=== PATIENT | male | born 1980 | race African-American/Black ===

== ENCOUNTER 2021-05-02 20:41 | Emergency (ER) | payer MEDICAID ==
[~2021-05-02] VITALS: Ht 182.9 cm; Wt 68.2 kg
[2021-05-02] MEDS ORDERED: ZYPREXA10 M1 PO (21:38)
[2021-05-02] MEDS ORDERED: ABILIFY 10MG TA10 MG PO (21:38)
[2021-05-02] MEDS ORDERED: ZOLOFT25 M1 PO (21:39)
[2021-05-02 22:31] LABS: BASO # 0.02 (0.02-0.10); EOS # 0.01 (0.04-0.40); EOS % 0.1 % (0.0-4.0); HEMATOCRIT 46.5 % (42.0-52.0); LYMPH# 0.83 (1.50-4.00); MEAN CELL VOLUME 86 fl (78-100); MEAN CORPUSCULAR HEMOGLOBIN 29 pg (27-31); MEAN CORPUSCULAR HGB CONC 34 g/dL (33-37); MEAN PLATELET VOLUME 10.3 fl (7.4-10.4); MONO # 0.76 (0.20-0.80); NEU # 11.42 (1.40-6.50); PLATELET COUNT 222 K/mm3 (130-400); RED BLOOD COUNT 5.44 M/mm3 (4.20-5.60); RED CELL DISTRIBUTION WIDTH 13.7 % (11.5-14.5); WHITE BLOOD COUNT 13.1 K/mm3 (4.8-10.8)
[2021-05-02 22:44] LABS: ALBUMIN 4.2 g/dL (3.5-5.0); POTASSIUM 3.6 mmol/L (3.5-5.1); SODIUM 138 mmol/L (136-145)
[2021-05-02 22:45] LABS: CALCIUM 9.9 mg/dL (8.3-10.5)
[2021-05-02 22:46] LABS: GLUCOSE 82 mg/dL (75-110)
[2021-05-02 22:47] LABS: CARBON DIOXIDE 24 mmol/L (22-29); TOTAL PROTEIN 7.5 g/dL (6.4-8.3)
[2021-05-02 22:48] LABS: TOTAL BILIRUBIN 1.3 mg/dL (0.2-1.2)
[2021-05-02 22:51] LABS: ALCOHOL IN-HOUSE < 10 mg/dL (<10)
[2021-05-02 22:52] LABS: AST-SGOT 47 U/L (5-34)
[2021-05-02 22:53] LABS: ALT/SGPT 24 U/L (0-55)
[2021-05-02 22:54] LABS: ACETAMINOPHEN < 1 ug/mL
[2021-05-03 00:01] LABS: URINE APPEARANCE HAZY; URINE BILIRUBIN NEGATIVE (NEGATIVE); URINE BLOOD 50 ery/uL (NEGATIVE); URINE COLOR YELLOW; URINE GLUCOSE NEGATIVE (NEGATIVE); URINE KETONE 2+ (NEGATIVE); URINE LEUKOCYTE ESTERASE NEGATIVE (NEGATIVE); URINE NITRATE NEGATIVE (NEGATIVE); URINE PROTEIN(semi-quant) 2+ mg/dL (NEGATIVE); URINE UROBILINOGEN NORMAL (NORMAL)
[2021-05-03 00:02] LABS: URINE MUCUS PRESENT (NOT PRESENT)
[2021-05-03 08:10] VITALS: BP 142/84
== END 2021-05-03 08:46 | disposition short-term general hospital (02) ==
LOC: ED 20:41
PROVIDERS: Nurse Practitioner Family
DX: F31.9 Bipolar disorder, unspecified (principal); R45.850 Homicidal ideations; R45.851 Suicidal ideations; I10 Essential (primary) hypertension; Z91.14 Patient's other noncompliance with medication regimen; Z20.822 Contact with and (suspected) exposure to COVID-19; Z79.899 Other long term (current) drug therapy